=== PATIENT | female | born 1960 | race American Indian/Alaskan Native ===

== ENCOUNTER 2016-06-13 20:07 | Emergency (ER) | payer SELFPAY ==
[2016-06-13 20:18] VITALS: TEMP 98.2
[2016-06-13] MEDS ORDERED: HYDROmorphone 2 MG/1 ML IVP ONE (20:28)
[2016-06-13] MEDS ORDERED: Sodium Chloride 0.9% 1,000 ML PRIMARY IV ONE (20:29)
--- NOTE | 2016-06-13 22:43 | DI ---
HISTORY: Fell 2 days ago. Lower back pain. COMPARISON: CT dated 08/30/2015. X-ray dated 06/30/2014. FINDINGS: Compared to the previous CT examination of 08/30/2015, there appears to be mild old compre ssion of the superior plate of the body of L1 and some narrowing of the intervertebral disc spaces be tween L1/L2 and L1/T12 with associated mild hypertrophic spurring suggesting degenerative discogenic changes with no evidence of recent fracture or dislocation. The intervertebral disc spaces are other taylor fairly well maintained and the pedicles are intact. IMPRESSION: 1. There appears to be mild old compression of the superior plate of the body of L1 and some narrowin g of the intervertebral disc spaces between L1/L2 and L1/T12 with associated mild hypertrophic spurri ng suggesting degenerative discogenic changes with no evidence of recent fracture or dislocation.
--- NOTE | 2016-06-13 22:44 | DI ---
HISTORY: Fell 2 days ago. Left hip pain. Obese patient. COMPARISON: None available. FINDINGS: Examination reveals mild demineralization and degenerative arthritic changes with no defin ite evidence of recent fracture or dislocation. IMPRESSION: 1. Mild demineralization and degenerative arthritic changes with no definite evidence of recent fract ure or dislocation. If symptoms should persist, a follow up examination is suggested.
[2016-06-13] MEDS ORDERED: HYDROcodone-APAP 5 MG -325 MG TABLET PO SCH (23:00)
[2016-06-14 00:30] VITALS: RESP 18
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
== END 2016-06-13 23:05 | disposition home or self-care (01) ==
LOC: ER 20:07
DX: M54.5 Low back pain (principal); M25.552 Pain in left hip; E11.9 Type 2 diabetes mellitus without complications; Z79.4 Long term (current) use of insulin; W03.XXXA Other fall on same level due to collision with another person, initial encounter
CPT/HCPCS: 72100; 73502; 96361; 96374; 99283; J1170; J7030

== ENCOUNTER 2016-10-21 17:39 | Emergency (ER) | payer SELFPAY ==
[2016-10-21] MEDS ORDERED: NORMAL SALINE 10 ML SYRINGE FLUSH IVP PRN (17:52)
[2016-10-21] MEDS ORDERED: Clindamycin 900mg (Premix) 900 MG in Dextrose 1 BAG IV ONE (17:58)
--- NOTE | 2016-10-21 18:09 | PDOC ---
General Adult HPI - General Chief Complaint: Nasal/Mouth Problem /Injury Stated Complaint: INFECTION FACE Date Seen by Provider: 10/21/16 Time Seen by Provider: 17:45 Source: POSITIVE: Patient Exam Limitations: POSITIVE: No limitations Nurse's Notes Reviewed & Considered: Yes - History of Present Illness Initial Comment: The patient is a 56-year-old female who presents to the emergency department with right facial swelling and concern for infection. She has a history of diabetes and reports that she had a significant infection on the right side of her face last fall. At that time she required hospitalization for 4 days with IV antibiotics and subsequent IV antibiotics afterward. She states that she noticed a small open area to the right upper lip yesterday evening. Throughout the day today she is had some increased pain and swelling to the right cheek. She has had some subjective chills however denies fever. She states that her blood sugar was in the 300s this morning. She denies any other associated complaints. Have you received a tetanus shot in the past 10 years?: Yes - Patient Home Medications Home Medications: Home Medications Hydrochlorothiazide 50 mg PO DAILY 12/11/10 Metformin HCl [GLUCOPHAGE] 1,000 mg PO DAILY 12/11/10 Aspirin [Baby Aspirin] 81 mg PO DAILY 10/20/11 Insulin Detemir [Levemir Flextouch] 37 unit SQ QHS unit 12/27/13 Insulin Lispro Flexpen Inj [HumaLOG Flexpen Inj] 20 unit SUBCUT AC 08/30/15 Atenolol 1 tab PO DAILY tab 12/22/15 Ibuprofen [Advil] 200 mg PO Q4H PRN 06/13/16 Doxycycline Hyclate 100 mg PO Q12H #20 cap 10/21/16 HYDROcodone/APAP 5/325 Tab [[place] 5/325 Tab] 1 each PO Q6H PRN #15 tablet - Patient Allergies Allergies/Adverse Reactions: Allergies Allergy/AdvReac Type Severity Reaction Status Date / Time SURGICAL TAPE AdvReac Intermediate ITCHING Uncoded 10/21/16 18:08 Past Medical History - heen HEENT History: Denies History Cardiovascular History: Hypertension Respiratory History: Other (please comment) Additional Respiratory History: BRONCHITIS Gastrointestinal History: Denies History Genitourinary History: Denies History Endocrine History: Type 2 Diabetes (oral), Type 2 Diabetes (insulin) Musculoskeletal History: Back Pain Prosthesis or Implant: No Neurological History: Denies History Blood Disorders: Denies History Psychiatric History: Denies History History of Sexually Transmitted Diseases: No Cancer History: Denies History History of MDRO: Yes History of Other Communicable Diseases: No Alcohol Use: Occasionally Substance Use Type: None Previous Surgical History: Yes Type / Date of Surgery: ECTOPIC AND LEFT ANKLE SURGERY Anesthesia Reactions: No Malignant Hyperthermia: No Significant Family History: No pertinent family hx Past Medical History Reviewed: Reviewed - No Changes ROS - Limitations ROS Limitations: No Limitations Constitution: REPORTS: Chills. DENIES: Fever Cardiovascular: REPORTS: Denies Cardiac Symptoms Respiratory: REPORTS: Denies Resp Symptoms Neurological: REPORTS: Denies Neuro Symptoms Gastrointestinal: REPORTS: Denies GI Symptoms Musculoskeletal: REPORTS: Denies MS Symptoms Eyes: REPORTS: Denies Symptoms ENT: DENIES: Congestion, Sore Throat, Trouble Swallowing Skin: DENIES: Rash General Adult Exam - General Appearance General Appearance: POSITIVE: Alert, Cooperative, No Acute Distress - HEENT HEENT: POSITIVE: Head Inspection Nml, Eyes Inspection Nml, Ears Inspection Nml, Pharynx Inspect. Nml, Other (Examination of the right upper lip reveals a small open sore, she does have some surrounding induration and erythema that extends onto the right cheek, there is no palpable abscess, no drainage of pus, she does have an enlarged tender lymph node in the right anterior cervical region.) - Respiratory Respiratory: POSITIVE: No Respiratory Distress, Breath Sounds Normal - Cardiovascular Cardiovascular: POSITIVE: Regular Rate & Rhythm, No Murmur - Skin Skin: POSITIVE: Normal Color, Other (She does have multiple open sores on her legs) - Extremities Extremity: Normal ROM: (All Extremities), Normal Inspection: (All Extremities) - Neurological / Psychological Neurological: POSITIVE: Other (No focal neurologic deficit) General Adult Progress - Results Reviewed by me Lab Results Reviewed: Yes Lab Results:: Laboratory Results 10/21/16 Range/Units 18:00 WBC 9.49 (4.8-10.8) 10^3/uL RBC 5.62 H (4.20-5.40) 10^6/uL Hgb 16.5 H (12.0-16.0) g/dL Hct 48.4 H (37.0-47.0) % MCV 86.1 (81-99) FL MCH 29.4 (27-31) PG MCHC 34.1 (33-37) g/dL RDW Std Deviation 44.0 (39-50) fL RDW Coeff of Hardik 14.1 (11.5-14.5) % Plt Count 203 (140-350) 10*3/uL MPV 10.3 (7.4-12.2) FL Immature Gran % (Auto) 0.4 (0-5) % Neut % (Auto) 73.2 (50-80) % Lymph % (Auto) 18.0 (10-50) % [place] % (Auto) 5.6 (5-15) % Eos % (Auto) 2.1 (0-8) % Baso % (Auto) 0.7 (0-1) % Immature Gran # (Auto) 0.04 10*3/UL Neut # (Auto) 6.94 10*3/UL Lymph # (Auto) 1.71 10*3/uL [place] # (Auto) 0.53 (0.3-0.8) 10*3/UL Eos # (Auto) 0.20 10*3/UL Baso # (Auto) 0.07 10*3/UL WBC Morphology Comment Normal morphology (NORM) Plt Morphology Comment Normal morphology (NORM) RBC Morph Comment Normal morphology (NORM) Sodium 138 (135-145) meq/L Potassium 4.0 (3.8-5.2) meq/L Chloride 101 (98-112) meq/L Carbon Dioxide 27 (23-33) meq/L Anion Gap 10 (5-20) BUN 16 (7-22) mg/dL Creatinine 0.5 (0.50-1.20) mg/dL Estimated GFR > 60 (>60 ml/min/1.73m(2)) BUN/Creatinine Ratio 32.00 H (6-20) Glucose 382 H (78-110) mg/dL Calculated Osmolality 302.0 H (267-292) mOsm/kg Calcium 10.8 H (8.7-10.7) mg/dL Total Bilirubin 0.6 (0.3-1.2) mg/dL AST 20 (8-39) IU/L ALT 31 (9-52) IU/L Alkaline Phosphatase 97 (38-126) IU/L C-Reactive Protein 2.3 H (0.0-0.9) mg/dL Total Protein 7.0 (6.1-8.0) g/dL Albumin 4.1 (3.5-4.8) g/dL Globulin 2.9 (2.50-4.10) g/dL Albumin/Globulin Ratio 1.40 (1.3-2.0) mg/g - Patient's Progress MDM / ED Course: An IV was established and blood cultures were drawn. Review of the patient's past medical record revealed that she grew out a methicillin sensitive staph aureus on her previous infection. Sensitivities of this infection were reviewed. She did receive clindamycin 900 mg IV. She was complaining of some increased facial pain and received Toradol 15 mg IV as well as [place] 5/325 one by mouth for pain. Her lab work reveals a normal white count with a mildly elevated CRP. Her blood sugar is elevated at 390. Her pain improved after administration of Toradol. At this point there is no obvious abscess on the face. Decision was made to treat as an outpatient with doxycycline 100 mg twice a day for 10 days. In addition she was prescribed Moselle as needed for pain. She is advised return to the emergency room she develops increased swelling, fever or chills, any worsening or change in symptoms. - Consult Counseled: POSITIVE: Patient, RE: Lab Results, RE: DX, RE: Need for F/U Patient Care Time - Estimated PCT Patient Care Time (In Minutes): 30 Vital Signs - Recent Vital Signs Vital Signs: Vital Signs (Last 8 hours) Temp Pulse Resp BP Pulse Ox 10/21/16 17:40 96.7 F L 85 16 153/79 91 - VS Reviewed Vital Signs Reviewed: Yes Discharge Clinical Impression: Facial cellulitis Discharge Disposition: Discharged to Home Condition: Stable Prescriptions / Orders: Doxycycline Hyclate 100 mg PO Q12H #20 cap HYDROcodone/APAP 5/325 Tab [[place] 5/325 Tab] 1 each PO Q6H PRN #15 tablet PRN Reason: Pain Patient Instructions Given at Discharge: Cellulitis (ED) Additional Instructions: Start doxycycline 100 mg twice a day for 10 days. Ibuprofen 600 mg every 6 hours as needed for pain. Mos[place] 5/325 one every 6 hours as needed for pain. Recommend warm compresses as needed. Return to the emergency room if significant increase in swelling, increased pain, fevers or chills, any worsening or change in symptoms. Recommend follow-up with primary care in 3-5 days. Follow Up With: NONE,NONE [Primary Care Provider] -
[2016-10-21 18:10] LABS: BASOPHILS # (AUTO) 0.07 10*3/UL; BASOPHILS % (AUTO) 0.7 % (0-1); EOSINOPHILS % (AUTO) 2.1 % (0-8); HEMATOCRIT 48.4 % (37.0-47.0); HEMOGLOBIN 16.5 g/dL (12.0-16.0); LYMPHOCYTES # (AUTO) 1.71 10*3/uL; MEAN CORPUSCULAR HEMOGLOBIN 29.4 PG (27-31); MEAN CORPUSCULAR HGB CONC 34.1 g/dL (33-37); MEAN CORPUSCULAR VOLUME 86.1 FL (81-99); MEAN PLATELET VOLUME 10.3 FL (7.4-12.2); MONOCYTES # (AUTO) 0.53 10*3/UL (0.3-0.8); MONOCYTES % (AUTO) 5.6 % (5-15); NEUTROPHILS # (AUTO) 6.94 10*3/UL; NEUTROPHILS % (AUTO) 73.2 % (50-80); RED BLOOD COUNT 5.62 10^6/uL (4.20-5.40)
[2016-10-21 18:12] LABS: PLATELET MORPHOLOGY COMMENT NORMAL MORPHOLOGY (NORM); RBC MORPHOLOGY COMMENT NORMAL MORPHOLOGY (NORM); WBC MORPHOLOGY COMMENT NORMAL MORPHOLOGY (NORM)
[2016-10-21 18:22] LABS: BLOOD UREA NITROGEN 16 mg/dL (7-22); C-REACTIVE PROTEIN 2.3 mg/dL (0.0-0.9); CALCIUM 10.8 mg/dL (8.7-10.7); EST GLOMERULAR FILTRATION > 60 (>60 ml/min/1.73m(2)); SERUM ALBUMIN 4.1 g/dL (3.5-4.8)
[2016-10-21] MEDS ORDERED: HYDROcodone-APAP 5 MG -325 MG TABLET PO ONE (18:37)
[2016-10-21] MEDS ORDERED: KETOROLAC 15 MG/1 ML VIAL IVP ONE (18:37)
[2016-10-21 18:39] VITALS: RESP 16; TEMP 96.7
== END 2016-10-21 19:31 | disposition home or self-care (01) ==
LOC: ER 17:39
DX: L03.211 Cellulitis of face (principal); R22.0 Localized swelling, mass and lump, head; E11.9 Type 2 diabetes mellitus without complications; Z79.4 Long term (current) use of insulin
CPT/HCPCS: 80053; 85025; 86140; 87040; 96365; 96375; 99283 ×2; J1885; S0077